=== PATIENT | female | born 1965 | race Caucasian/White ===

== ENCOUNTER 2024-06-25 11:33 | Emergency (ER) | payer OTHER ==
[~2024-06-25] VITALS: Ht 167.6 cm; Wt 77.1 kg
[2024-06-25] MEDS ORDERED: TRAZ50 PO (11:56)
[2024-06-25] MEDS ORDERED: QUET100 PO (11:56)
[2024-06-25] MEDS ORDERED: Lamictal200 MG PO (11:56)
[2024-06-25] MEDS ORDERED: Neurontin 100100 MG PO (11:58)
[2024-06-25] MEDS ORDERED: OMEP20ER PO (11:58)
[2024-06-25] MEDS ORDERED: Mobic15 MG PO (11:58)
== END 2024-06-25 11:58 | disposition home or self-care (01) ==
LOC: ER 11:33
DX: Z76.0 Encounter for issue of repeat prescription (principal); Z88.5 Allergy status to narcotic agent
CPT/HCPCS: 99281